=== PATIENT | male | born 2000 | race Caucasian/White ===

== ENCOUNTER 2020-09-29 11:33 | Emergency (ER) | payer BC ==
[~2020-09-29] VITALS: Ht 180.3 cm; Wt 75.0 kg
[2020-09-29 11:48] VITALS: TEMP 98.1
[2020-09-29 12:20] LABS: BASO % 0.3 % (0.0-2.0); EOS % 0.6 % (0-4.0); GRAN # 3.7 (1.4-6.5); GRAN % 55.3 % (42.2-75.2); HEMATOCRIT 41.5 % (42.0-52.0); HEMOGLOBIN 14.4 g/dl (13.5-18.0); LYMPH # 2.4 (1.2-3.4); LYMPH % 36.1 % (20.0-51.0); MEAN CELL VOLUME 89 fl (80.0-100.0); MEAN CORPUSCULAR HEMOGLOBIN 31 pg (27.0-31.0); MEAN CORPUSCULAR HGB CONC 35 g/dl (33.0-37.0); MEAN PLATELET VOLUME 10.2 fl (7.4-10.4); MONO # 0.5 (0.1-0.6); MONO % 7.6 % (1.7-9.3); PLATELET COUNT 271 K/mm3 (130-400); RED BLOOD COUNT 4.67 M/mm3 (4.20-5.60); REDCELL DISTRIBUTION WIDTH-CV 12.1 % (11.5-14.5)
[2020-09-29 12:29] LABS: ALBUMIN 4.4 gm/dL (3.5-5.0); BILIRUBIN,TOTAL 1.3 mg/dL (0.0-1.0); CALCIUM 9.3 mg/dL (8.4-10.2); CREATININE, serum 0.77 (0.66-1.25); POTASSIUM 3.3 mmol/L (3.4-5.0); TOTAL PROTEIN 7.3 gm/dL (6.4-8.2)
[2020-09-29 12:59] LABS: TSH w REFLEX 3.4 uIU/mL (0.465-4.680)
[2020-09-29 14:30] VITALS: BP 119/80; PULSE 46
== END 2020-09-29 14:30 | disposition home or self-care (01) ==
LOC: COL.ER 11:33
PROVIDERS: Physician Assistant
DX: R07.89 Other chest pain (principal); R42 Dizziness and giddiness; E10.9 Type 1 diabetes mellitus without complications